=== PATIENT | male | born 1945 | race Caucasian/White ===

== ENCOUNTER 2017-09-04 16:34 | Inpatient (IN) | payer OTHER ==
[~2017-09-04] VITALS: Ht 177.8 cm; Wt 86.1 kg
[~2017-09-04 16:34] MED LIST: AMOX TR-K CLV1 EAC3 PO; ATENOLOL50 MG PO; ELIQUIS5 MG PO; FOLIC ACID1 MG PO; LIBRIUM25 MG PO; LISINOPRIL-HCT1 EAC3 PO; LOPRESSOR25 MG PO; NIACIN500 M4 PO; OMEGA 3-6-9 CO1 EACH PO; PRAVASTATIN SOD40 MG PO; THERAGRAN1 TABLET PO; Thiamine,Vitamin B1 PO
[2017-09-04 17:39] LABS: HEMATOCRIT 39.7 % (38.0-50.0); HEMOGLOBIN 14.3 G/DL (12.5-16.6); MCH 33.3 PG (29.0-34.0); MCV 92.3 FL (86-99); PLATELET COUNT 84 K/uL (156-360); RBC DIS.WIDTH-CV 13.2 % (11.8-14.6); RBC DIS.WIDTH-SD 44.5 % (39-53); WHITE BLOOD COUNT 5.4 K/uL (4.1-10.2)
[2017-09-04 17:50] LABS: ALBUMIN 4.1 g/dL (3.2-4.8); CHLORIDE 100 mEq/L (99-109); POTASSIUM 3.3 mEq/L (3.7-5.4); SODIUM 138 mEq/L (136-147)
[2017-09-04 17:51] LABS: MAGNESIUM 1.3 mg/dL (1.3-2.7)
[2017-09-04 17:53] LABS: GLUCOSE 154 mg/dL (70-99)
[2017-09-04 17:54] LABS: TOTAL BILIRUBIN 1.2 mg/dL (0.0-1.0)
[2017-09-04 17:55] LABS: SERUM ETHYL ALCOHOL 75 mg/dL
[2017-09-04 17:56] LABS: ALKALINE PHOSPHATASE 106 IU/L (3-129); CREATININE 0.9 mg/dL (0.6-1.3); GFR ESTIMATE (CALCULATED) > 59 mL/min/ (58.99-99999)
[2017-09-04 17:57] LABS: UREA NITROGEN (BUN) 13 mg/dL (9-23)
[2017-09-04 17:58] LABS: AST (GOT) 94 IU/L (2-34)
[2017-09-04 17:59] LABS: ALT (GPT) 68 IU/L (3-49)
[2017-09-04 18:00] LABS: CREATINE KINASE 122 IU/L (1-294); LIPASE 201 U/L (1.0-51.0)
[2017-09-04 18:01] LABS: TROP-I INTERPRETATION NEGATIVE; TROPONIN-I < 0.01 ng/mL (0.0-0.30)
[2017-09-04 18:01] LABS: INTER. NORMALIZED RATIO 1.2
[2017-09-04 18:04] LABS: PTT 30.8 SEC (25-37)
[2017-09-04 19:19] LABS: APPEARANCE SL.HAZY ((CLEAR)); BILIRUBIN NEGATIVE; BLOOD MODERATE; COLOR AMBER ((YELLOW)); GLUCOSE (STRIP) 50; KETONES 5; LEUKOCYTES NEGATIVE; NITRITE NEGATIVE; PROTEIN (STRIP) >=500; SPECIFIC GRAVITY 1.016 (1.000-1.030)
[2017-09-04 19:41] LABS: BACTERIA NONE SEEN /HPF; EPITHELIAL CELLS NONE SEEN /HPF; MUCUS TRACE /LPF; RED BLOOD CELLS 20-30 /HPF (0-5); UCUL ADDED? NO; WHITE BLOOD CELLS 0-5 /HPF (0-5)
[2017-09-04] MEDS ORDERED: BYSTOLIC5 MG PO (19:42)
[2017-09-04] MEDS ORDERED: B-COMPLEX-VITA1 EACH PO (19:43)
[2017-09-04] MEDS ORDERED: ALEVE220 MG PO (19:43)
[2017-09-04] MEDS ORDERED: COZAAR50 MG PO (19:43)
[2017-09-04] MEDS ORDERED: TYLENOL EXTRA500 MG PO (19:43)
[2017-09-04] MEDS ORDERED: VITAMIN B-1100 MG PO (19:44)
[2017-09-04 19:54] LABS: AMPHETAMINE NEGATIVE (500 ng/mL); BARBITURATES NEGATIVE (200 ng/mL); BENZODIAZEPINES NEGATIVE (150 ng/mL); BUPRENORPHINE NEGATIVE (10 ng/mL); COCAINE NEGATIVE (150 ng/mL); METHADONE NEGATIVE (200 ng/mL); METHAMPHETAMINE NEGATIVE (500 ng/mL); OPIATES (MORPHINE) NEGATIVE (100 ng/mL); OXYCODONE NEGATIVE (100 ng/mL); PHENCYCLIDINE NEGATIVE (25 ng/mL); PROPOXYPHENE NEGATIVE (300 ng/mL); THC CANNABINOIDS NEGATIVE (50 ng/mL); TRICYCLIC ANTIDEPRESSANTS NEGATIVE (300 ng/mL)
[2017-09-04 21:25] VITALS: BP 163/104
[2017-09-04 21:41] LABS: THYROTROPIN (TSH) 1.6 MIU/L (0.4-5.5)
[2017-09-04 22:46] VITALS: BP 163/104
[2017-09-04 22:58] VITALS: BP 142/90
[2017-09-05 00:08] VITALS: BP 141/92
[2017-09-05 03:30] VITALS: BP 138/90
[2017-09-05 07:50] VITALS: BP 136/84
[2017-09-05 09:32] LABS: HEMATOCRIT 37.2 % (38.0-50.0); HEMOGLOBIN 12.5 G/DL (12.5-16.6); MCH 31.8 PG (29.0-34.0); MCHC 33.6 G/DL (30.0-36.0); MCV 94.7 FL (86-99); PLATELET COUNT 64 K/uL (156-360); RBC DIS.WIDTH-CV 13.3 % (11.8-14.6); RBC DIS.WIDTH-SD 46.4 % (39-53); RED BLOOD COUNT 3.93 M/uL (4.00-5.50); WHITE BLOOD COUNT 5.1 K/uL (4.1-10.2)
[2017-09-05 10:52] VITALS: BP 137/93
[2017-09-05 10:53] LABS: LYME DISEASE SEROLOGY SCREEN NEGATIVE (NEGATIVE)
[2017-09-05 11:25] LABS: ALBUMIN 3.6 G/DL (3.2-4.8); ALKALINE PHOSPHATASE 76 IU/L (3-129); ALT (GPT) 40 IU/L (3-49); AST (GOT) 56 IU/L (2-34); C-REACTIVE PROTEIN 4.5 MG/L (0-10); CHLORIDE 102 MEQ/L (99-109); CREATINE KINASE 96 IU/L (1-294); CREATININE 0.8 MG/DL (0.6-1.3); GFR ESTIMATE (CALCULATED) > 59 mL/min/ (58.99-99999); GLUCOSE 140 mg/dL (70-99); LIPASE 226 U/L (1.0-51.0); POTASSIUM 3.7 MEQ/L (3.7-5.4); SODIUM 138 MEQ/L (136-147); TOTAL BILIRUBIN 1.4 MG/DL (0.0-1.0); TOTAL PROTEIN 5.7 G/DL (6.4-8.3); UREA NITROGEN (BUN) 10 mg/dL (9-23)
[2017-09-05 12:25] LABS: C DIFF TOXIN NEGATIVE (NEGATIVE)
[2017-09-05 12:36] LABS: FOLIC ACID (FOLATE) > 22.0 NG/ML (5.0-22.0)
[2017-09-05 12:49] LABS: HEMATOCRIT 36.3 % (38.0-50.0); HEMOGLOBIN 12.6 G/DL (12.5-16.6); MCH 32.8 PG (29.0-34.0); MCHC 34.7 G/DL (30.0-36.0); MCV 94.5 FL (86-99); PLATELET COUNT 65 K/uL (156-360); RBC DIS.WIDTH-CV 13.5 % (11.8-14.6); RBC DIS.WIDTH-SD 46.6 % (39-53); RED BLOOD COUNT 3.84 M/uL (4.00-5.50); WHITE BLOOD COUNT 5.9 K/uL (4.1-10.2)
[2017-09-05 13:45] LABS: ABS NEUTROPHIL COUNT 4.8; ANISOCYTOSIS 1+; ATYPICAL LYMPHOCYTE 1.7 %; EOSINOPHIL ABS CT 0.1; EOSINOPHILS 0.9 % (0-5.0); LYMPHOCYTES 12.3 % (15.0-45.0); MONOCYTES 4.4 % (0-9.0); PLAT.SUFFICIENCY DECREASED; SEG.NEUTROPHILS 80.7 % (46.0-76.0); SMUDGE CELLS 1.8
[2017-09-05 14:01] LABS: HEMOGLOBIN A1c (GLYCOHEMOGLOB) 5.6 % (Below 5.7)
[2017-09-05 17:30] VITALS: BP 165/104
[2017-09-05 19:45] VITALS: BP 158/94
[2017-09-06 00:13] VITALS: BP 170/108
[2017-09-06 04:45] VITALS: BP 160/100
[2017-09-06 05:49] LABS: BASOPHIL (%) 0.4 % (0-1); EOSINOPHIL (%) 2.7 % (0-5); EOSINOPHIL COUNT 0.1 K/uL (0-0.3); HEMATOCRIT 38.2 % (38.0-50.0); HEMOGLOBIN 12.9 G/DL (12.5-16.6); IMMATURE GRANULOCYTE (%) 0.4 % (0.0-0.7); LYMPHOCYTE (%) 19.6 % (15-42); MCH 31.9 PG (29.0-34.0); MCHC 33.8 G/DL (30.0-36.0); MCV 94.6 FL (86-99); MONOCYTE COUNT 0.6 K/uL (0-0.8); NEUTROPHIL (%) 65.9 % (45-76); NEUTROPHIL COUNT 3.4 K/uL (1.8-6.4); PLATELET COUNT 55 K/uL (156-360); RBC DIS.WIDTH-CV 13.2 % (11.8-14.6); RBC DIS.WIDTH-SD 45.8 % (39-53); RED BLOOD COUNT 4.04 M/uL (4.00-5.50); WHITE BLOOD COUNT 5.2 K/uL (4.1-10.2)
[2017-09-06 06:26] LABS: CHLORIDE 101 MEQ/L (99-109); CREATININE 0.9 MG/DL (0.6-1.3); GFR ESTIMATE (CALCULATED) > 59 mL/min/ (58.99-99999); POTASSIUM 3.7 MEQ/L (3.7-5.4); SODIUM 139 MEQ/L (136-147); UREA NITROGEN (BUN) 8 mg/dL (9-23)
[2017-09-06 06:29] LABS: GLUCOSE 88 mg/dL (70-99)
[2017-09-06 08:18] LABS: ALBUMIN 3.6 G/DL (3.2-4.8); ALKALINE PHOSPHATASE 76 IU/L (3-129); ALT (GPT) 32 IU/L (3-49); AST (GOT) 43 IU/L (2-34); DIRECT BILIRUBIN 0.5 mg/dL (0.0-0.3); TOTAL BILIRUBIN 1.4 MG/DL (0.0-1.0); TOTAL PROTEIN 5.9 G/DL (6.4-8.3)
[2017-09-06 08:46] VITALS: BP 149/97
[2017-09-06 11:02] VITALS: BP 164/107
[2017-09-06 15:26] VITALS: BP 142/100
[2017-09-06 22:17] LABS: APPEARANCE CLEAR ((CLEAR)); BILIRUBIN NEGATIVE; BLOOD LARGE; COLOR YELLOW ((YELLOW)); GLUCOSE (STRIP) NEGATIVE; KETONES NEGATIVE; LEUKOCYTES MODERATE; NITRITE NEGATIVE; PROTEIN (STRIP) NEGATIVE; SPECIFIC GRAVITY 1.006 (1.000-1.030)
[2017-09-06 22:20] LABS: BACTERIA RARE /HPF; EPITHELIAL CELLS NONE SEEN /HPF; MUCUS TRACE /LPF; RED BLOOD CELLS 20-30 /HPF (0-5); WHITE BLOOD CELLS 30-40 /HPF (0-5)
[2017-09-06 23:40] VITALS: BP 156/86
[2017-09-07 04:34] VITALS: BP 146/86
[2017-09-07 05:53] LABS: BASOPHIL (%) 0.1 % (0-1); EOSINOPHIL (%) 1.5 % (0-5); EOSINOPHIL COUNT 0.1 K/uL (0-0.3); HEMATOCRIT 39.7 % (38.0-50.0); HEMOGLOBIN 13.6 G/DL (12.5-16.6); IMMATURE GRANULOCYTE (%) 0.5 % (0.0-0.7); LYMPHOCYTE (%) 14.5 % (15-42); LYMPHOCYTE COUNT 1.1 K/uL (1.0-2.8); MCH 32.4 PG (29.0-34.0); MCHC 34.3 G/DL (30.0-36.0); MCV 94.5 FL (86-99); MONOCYTE (%) 8.2 % (3-12); MONOCYTE COUNT 0.6 K/uL (0-0.8); NEUTROPHIL (%) 75.2 % (45-76); NEUTROPHIL COUNT 5.5 K/uL (1.8-6.4); PLATELET COUNT 65 K/uL (156-360); RBC DIS.WIDTH-CV 13.3 % (11.8-14.6); RBC DIS.WIDTH-SD 45.9 % (39-53); WHITE BLOOD COUNT 7.3 K/uL (4.1-10.2)
[2017-09-07 06:19] LABS: ALBUMIN 3.7 G/DL (3.2-4.8); ALKALINE PHOSPHATASE 87 IU/L (3-129); ALT (GPT) 29 IU/L (3-49); AST (GOT) 34 IU/L (2-34); CHLORIDE 99 MEQ/L (99-109); GFR ESTIMATE (CALCULATED) > 59 mL/min/ (58.99-99999); GLUCOSE 127 mg/dL (70-99); LIPASE 157 U/L (1.0-51.0); POTASSIUM 3.5 MEQ/L (3.7-5.4); SODIUM 137 MEQ/L (136-147); TOTAL BILIRUBIN 1.6 MG/DL (0.0-1.0); TOTAL PROTEIN 6.4 G/DL (6.4-8.3); UREA NITROGEN (BUN) 11 mg/dL (9-23)
[2017-09-07 08:08] VITALS: BP 177/81
[2017-09-07 10:03] LABS: HEPATITIS B SURFACE ANTIGEN Nonreactive
[2017-09-07 10:04] LABS: HEPATITIS C ANTIBODY Nonreactive
[2017-09-07 10:05] LABS: ANTI-HEPATITIS A VIRUS (IGM) Nonreactive; ANTI-HEPATITIS B CORE (IGM) Nonreactive
[2017-09-07 12:08] VITALS: BP 140/82
[2017-09-07 15:37] VITALS: BP 118/86
[2017-09-08 00:07] VITALS: BP 152/63
[2017-09-08 06:29] LABS: HEMOGLOBIN 13.9 G/DL (12.5-16.6); MCH 32.5 PG (29.0-34.0); MCHC 33.9 G/DL (30.0-36.0); MCV 95.8 FL (86-99); PLATELET COUNT 61 K/uL (156-360); RBC DIS.WIDTH-CV 13.6 % (11.8-14.6); RBC DIS.WIDTH-SD 47.9 % (39-53); RED BLOOD COUNT 4.28 M/uL (4.00-5.50); WHITE BLOOD COUNT 9.4 K/uL (4.1-10.2)
[2017-09-08 06:52] LABS: CHLORIDE 97 MEQ/L (99-109); GFR ESTIMATE (CALCULATED) > 59 mL/min/ (58.99-99999); GLUCOSE 131 mg/dL (70-99); SODIUM 135 MEQ/L (136-147); UREA NITROGEN (BUN) 15 mg/dL (9-23)
[2017-09-08 07:30] VITALS: BP 140/84
[2017-09-08 16:16] VITALS: BP 129/83
[2017-09-08 23:31] VITALS: BP 130/72
[2017-09-09] MEDS ORDERED: CARDIZEM CD,CA180 MG PO (07:56)
[2017-09-09] MEDS ORDERED: COZAAR50 MG PO (07:57)
[2017-09-09] MEDS ORDERED: LOPERAMIDE2 MG PO (07:57)
[2017-09-09 07:58] VITALS: BP 142/78
== END 2017-09-09 14:05 | DRG 897 ==
LOC: EME 16:34 → EDOF 20:15 → 4EAST 20:15 → ENRESERV 20:16 → 4EAST 21:06 → ENRESERV 09-06 10:22 → 5SOUTH 09-06 14:23
PROVIDERS: Hospitalist; Internal Medicine; Nurse Practitioner Acute Care
PROC: HZ2ZZZZ Detoxification Services for Substance Abuse Treatment (ICD-10-PCS; principal; 2017-09-04)
DX: F10.231 Alcohol dependence with withdrawal delirium (principal); I48.0 Paroxysmal atrial fibrillation; E87.6 Hypokalemia; S00.81XA Abrasion of other part of head, initial encounter; S20.229A Contusion of unspecified back wall of thorax, initial encounter; S22.42XA Multiple fractures of ribs, left side, initial encounter for closed fracture; W19.XXXA Unspecified fall, initial encounter; K70.10 Alcoholic hepatitis without ascites; K76.0 Fatty (change of) liver, not elsewhere classified; G62.1 Alcoholic polyneuropathy; I16.9 Hypertensive crisis, unspecified; D69.59 Other secondary thrombocytopenia; R74.0 Nonspecific elevation of levels of transaminase and lactic acid dehydrogenase [LDH]; R29.6 Repeated falls; R26.9 Unspecified abnormalities of gait and mobility; R55 Syncope and collapse; R53.1 Weakness; I10 Essential (primary) hypertension; E78.5 Hyperlipidemia, unspecified; F41.9 Anxiety disorder, unspecified; Z91.81 History of falling; Z79.01 Long term (current) use of anticoagulants; Z80.7 Family history of other malignant neoplasms of lymphoid, hematopoietic and related tissues; Z83.3 Family history of diabetes mellitus
CPT/HCPCS: 70450; 71046; 71250; 72125; 72128; 72131; 74177; 80048; 80053; 80074; 80076; 81003; 82550; 82607; 82746; 83036; 83690; 83735; 83880; 84100; 84443; 84484; 85007; 85025; 85027; 85060; 85610; 85651; 85730; 86140; 86618; 87493; 87506; 93005; 99281; 99285; G0480; J1200; J1630; J2060; J3411; J7030; J7040; J7050

== ENCOUNTER 2017-10-03 22:33 | Emergency (ER) | payer OTHER ==
[~2017-10-03] VITALS: Ht 182.9 cm; Wt 86.8 kg
[~2017-10-03 22:33] MED LIST changes: +ALEVE220 MG PO; +B-COMPLEX-VITA1 EACH PO; +BYSTOLIC5 MG PO; +CARDIZEM CD,CA180 MG PO; +COZAAR50 MG PO; +LOPERAMIDE2 MG PO; +TYLENOL EXTRA500 MG PO; +VITAMIN B-1100 MG PO
[2017-10-03 23:25] LABS: BASOPHIL (%) 0.3 % (0-1); EOSINOPHIL (%) 0.3 % (0-5); HEMATOCRIT 31.8 % (38.0-50.0); HEMOGLOBIN 10.9 G/DL (12.5-16.6); IMMATURE GRANULOCYTE (%) 0.5 % (0.0-0.7); LYMPHOCYTE (%) 13.1 % (15-42); LYMPHOCYTE COUNT 1.4 K/uL (1.0-2.8); MCH 31.1 PG (29.0-34.0); MCHC 34.3 G/DL (30.0-36.0); MCV 90.9 FL (86-99); MONOCYTE (%) 13.2 % (3-12); MONOCYTE COUNT 1.4 K/uL (0-0.8); NEUTROPHIL (%) 72.6 % (45-76); NEUTROPHIL COUNT 7.9 K/uL (1.8-6.4); PLATELET COUNT 192 K/uL (156-360); RBC DIS.WIDTH-CV 13.7 % (11.8-14.6); WHITE BLOOD COUNT 10.9 K/uL (4.1-10.2)
[2017-10-03 23:30] LABS: ALBUMIN 3.4 g/dL (3.2-4.8)
[2017-10-03 23:31] LABS: CHLORIDE 98 mEq/L (99-109); POTASSIUM 3.7 mEq/L (3.7-5.4); SODIUM 133 mEq/L (136-147)
[2017-10-03 23:33] LABS: GLUCOSE 130 mg/dL (70-99); TOTAL PROTEIN 6.6 g/dL (6.4-8.3)
[2017-10-03 23:35] LABS: TOTAL BILIRUBIN 0.7 mg/dL (0.0-1.0)
[2017-10-03 23:36] LABS: ALKALINE PHOSPHATASE 111 IU/L (3-129)
[2017-10-03 23:37] LABS: CREATININE 1.3 mg/dL (0.6-1.3); GFR ESTIMATE (CALCULATED) 58 mL/min/ (58.99-99999)
[2017-10-03 23:38] LABS: AST (GOT) 17 IU/L (2-34); UREA NITROGEN (BUN) 14 mg/dL (9-23)
[2017-10-03 23:39] LABS: ALT (GPT) 19 IU/L (3-49)
[2017-10-03 23:40] LABS: LIPASE 87 U/L (1.0-51.0)
[2017-10-04 00:23] LABS: APPEARANCE CLOUDY ((CLEAR)); BILIRUBIN NEGATIVE; BLOOD LARGE; COLOR YELLOW ((YELLOW)); GLUCOSE (STRIP) NEGATIVE; KETONES NEGATIVE; LEUKOCYTES LARGE; NITRITE NEGATIVE; PROTEIN (STRIP) 100; SPECIFIC GRAVITY 1.006 (1.000-1.030); UROBILINOGEN 0.2 MG/DL (0.2-1.0)
[2017-10-04 00:30] LABS: BACTERIA 1+ /HPF; EPITHELIAL CELLS NONE SEEN /HPF; MUCUS NONE SEEN /LPF; RED BLOOD CELLS TNTC /HPF (0-5); UCUL ADDED? YES; WHITE BLOOD CELLS TNTC /HPF (0-5)
[2017-10-04] MEDS ORDERED: BACTRIM,SEPT1 TABLET PO (00:42)
[2017-10-04 01:18] VITALS: BP 107/80
== END 2017-10-04 02:36 | disposition home or self-care (01) ==
LOC: EME 22:33
PROVIDERS: Emergency Medicine
DX: N30.00 Acute cystitis without hematuria (principal); F41.9 Anxiety disorder, unspecified; Z87.442 Personal history of urinary calculi
CPT/HCPCS: 71045; 80053; 81003; 83605; 83690; 85025; 87040; 87077; 87086; 87186; J7030